=== PATIENT | female | born 1970 | race Two or more races ===

== ENCOUNTER 2021-11-14 19:11 | Emergency (ER) | payer MEDICAID ==
[~2021-11-14] VITALS: Ht 157.5 cm; Wt 63.6 kg
[2021-11-14 19:15] VITALS: BP 174/81
--- NOTE | 2021-11-14 19:41 | PHYS DOC ---
Past Medical History Past Surgical History: Appendectomy General Adult EDM: Chief Complaint: UPPER EXTREMITY PAIN HPI: HPI: Patient is a 51 year old female with no significant medical history presented to the ED today complaining of intermittent 7 out of 10 sharp right shoulder pain, symptoms have been going on for 1 month. Patient states symptoms are worse on movement of the right shoulder. Denies any injuries. Denies any numbness or tingling to the right upper extremity. Denies any chest pain. She states she has tried [id number]-qzaoaee pain patches and pain medicines with no relief Patient is [place]-speaking and the sister interpreted Review of Systems: Review of Systems: Constitutional: Denies fever or chills. [] Respiratory: Denies cough or shortness of breath. [] Cardiovascular: Denies chest pain or edema. [] GI: Denies abdominal pain, nausea, vomiting, bloody stools or diarrhea. [] : Denies dysuria. [] Musculoskeletal: Reports right shoulder pain Integument: Denies rash. [] Neurologic: Denies headache, focal weakness or sensory changes. [] Psychiatric: Denies depression or anxiety. [] Heart Score: C/O Chest Pain: N/A Risk Factors: Risk Factors: DM, Current or recent (<one month) smoker, HTN, HLP, family history of CAD, obesity. Risk Scores: Score 0 - 3: 2.5% MACE over next 6 weeks - Discharge Home Score 4 - 6: 20.3% MACE over next 6 weeks - Admit for Clinical Observation Score 7 - 10: 72.7% MACE over next 6 weeks - Early Invasive Strategies Physical Exam: PE: Constitutional: Well developed, well nourished, no acute distress, non-toxic appearance. [] Cardiovascular:Heart rate regular rhythm, no murmur [] Lungs & Thorax: Bilateral breath sounds clear to auscultation [] Skin: Warm, dry, no erythema, no rash. [] Back: No tenderness, no CVA tenderness. [] Extremities: No deformity noted to the right upper extremity, reproducible pain to the right shoulder during range of motion. Full passive range of motion to the right upper extremity. Adequate radial, median, ulnar sensation to the right upper extremity. +2 right radial pulse. Cap refill less than 2 seconds of right fingers Neurologic: Alert and oriented X 3, normal motor function, normal sensory function, no focal deficits noted. [] Psychologic: Affect normal, judgement normal, mood normal. [] Current Patient Data: Vital Signs: Vital Signs Date Time Temp Pulse Resp B/P (MAP) Pulse Ox O2 Delivery O2 Flow Rate FiO2 11/14/21 19:15 98.2 84 18 174/81 (112) 98 Room Air 98.2 EKG: EKG: [] Radiology/Procedures: Radiology/Procedures: []PROCEDURE: SHOULDER 2+V RIGHT XR SHOULDER_RIGHT 2+ VIEWS 11/14/2021 8:24 PM INDICATION: Pain COMPARISON: None available. TECHNIQUE: 3 views of the right shoulder are provided. FINDINGS/ IMPRESSION: There is no acute fracture or dislocation. Mineralization along the superolateral humeral head could reflect calcific tendinitis. Joint spaces are maintained. Bone mineralization is within normal limits. Regional soft tissues are within normal limits. There is no soft tissue gas or osseous erosion. No radiopaque foreign body. Electronically signed by: Rivas Rouse MD (11/14/2021 8:32 PM) [facility] DICTATED and SIGNED BY: RIVAS ROUSE MD DATE: 11/14/212030 Course & Med Decision Making: Course & Med Decision Making Pertinent Labs and Imaging studies reviewed. (See chart for details) This is a 51-year-old female patient presented to the ED today with right shoulder pain that began a month ago. No known injury. Right shoulder x-rays are negative for any acute findings, noted for calcified tendinitis. Discharge on naproxen, Flexeril and Medrol Dosepak. Provided Ortho for follow-up. Steve Disclaimer: Steve Disclaimer: This electronic medical record was generated, in whole or in part, using a voice recognition dictation system. Departure Departure Impression: Primary Impression: Tendinitis of right shoulder Disposition: HOME / SELF CARE / HOMELESS Condition: STABLE Referrals: ED BERGER Jr. DO Please follow up in one week Patient Instructions: Calcific Tendinitis Additional Instructions: You were evaluated in the emergency room for right shoulder pain and noted to have tendinitis on your x-ray. We encourage you to ice and elevate the affected extremity. Try and take the right shoulder through full range of motion sev eral times a day. Take the prescribed medications as ordered. Follow-up with the orthopedic doctor in 1 week Scripts Meloxicam (MOBIC) 7.5 Mg Tablet 1 TAB PO DAILY, #7 TAB 1 Refill Prov: MARIO SWAN APRN 11/14/21 Cyclobenzaprine Hcl (CYCLOBENZAPRINE HCL) 10 Mg Tablet 1 TAB PO TID, #30 TAB Prov: MAROI SWAN APRN 11/14/21 Methylprednisolone (MEDROL) 4 Mg Tab.ds.pk 1 PKG PO UD, #1 PKG Prov: MARIO SWAN APRN 11/14/21 MARIO SWAN APRN Nov 14, 2021 19:41
--- NOTE | 2021-11-14 20:34 | RAD ---
XR SHOULDER_RIGHT 2+ VIEWS 11/14/2021 8:24 PM INDICATION: Pain COMPARISON: None available. TECHNIQUE: 3 views of the right shoulder are provided. FINDINGS/ IMPRESSION: There is no acute fracture or dislocation. Mineralization along the superolateral humeral head could reflect calcific tendinitis. Joint spaces are maintained. Bone mineralization is within normal limits . Regional soft tissues are within normal limits. There is no soft tissue gas or osseous erosion. No radiopaque foreign body. Electronically signed by: Yahaira Rouse MD (11/14/2021 8:32 PM) [facility]
[2021-11-14] MEDS ORDERED: CYCL10TA19 PO (20:43)
[2021-11-14] MEDS ORDERED: METH4TAB2 PO (20:43)
[2021-11-14] MEDS ORDERED: MELO7.5T5 PO (20:43)
[2021-11-14] MEDS ORDERED: NAPROXEN 500 MG TABLET PO STA (20:48)
[2021-11-14] MEDS ORDERED: CYCLOBENZAPRINE 10 MG TABLET. PO ONE (21:00)
[2021-11-14] MEDS ORDERED: HYDROcodone/APAP 5/325MG 1 TAB TABLET PO ONE (21:00)
== END 2021-11-14 21:05 | disposition home or self-care (01) ==
LOC: ER 19:11
DX: M75.91 Shoulder lesion, unspecified, right shoulder (principal)
CPT/HCPCS: 73030; 99284